=== PATIENT | male | born 1950 | race Caucasian/White ===

== ENCOUNTER 2022-05-01 15:05 | Emergency (ER) | payer MEDICARE, MEDICAID ==
[~2022-05-01 15:05] MED LIST: ACET325T38 PO; ALBU2.5V4 NEB; ALBU8.5H6 IH; ASPI-1238 PO; ATOR40TA PO; BUDE10.2 IH; CHOL10007 PO; CYAN-41 PO; DICL100G18 TP; ENOX40DI13 SQ; FLUT12AE4 IH; IBUP-1780 PO; METH-731 PO; METH500T PO; MUPI22OI2 TP; NICO-685 TD; OMEP20TA33 PO; OXC5T PO; SENN-20 PO; SERT100T PO; TIOT4MIS2 IH; TRZ50T PO
[2022-05-01 15:10] VITALS: BP 123/68
[2022-05-01] MEDS ORDERED: LACTATED RINGERS 1,000 ML IV STA (15:11)
--- NOTE | 2022-05-01 15:14 | ED General ---
General Chief Complaint: General Problems/Pain Stated Complaint: INTOXICATION History of Present Illness Date Seen by Provider: May 01, 2022 Time Seen by Provider: 15:05 Initial Comments Unknown aged gentleman brought in by EMS with what is believed to be acute intoxication. Patient was found by PD wandering around. When they approached him he threw 2 bottles of vodka and him that were empty. Patient appears to be extremely intoxicated slurring his words and unable to make much sense otherwise. Patient has no other HPI available Allergies and Home Medications Allergies Coded Allergies: No Allergy Information Available (Unverified , 05/01/22) Patient Home Medication List Home Medication List Reviewed: Yes Review of Systems Review of Systems Constitutional: see HPI Unable to obtain due to acute intoxication Past Rcntwsd-Esameb-Lsgjxd Hx Patient Social History Tobacco Use?: Yes Tobacco type used: Cigarettes Smoking Status: Current Everyday Smoker Substance use?: Unable to obtain Alcohol Use?: Yes Physical Exam Vital Signs Vital Signs - First Documented 05/01/22 15:10 Temp 35.4 Pulse 66 Resp 18 B/P (MAP) 123/68 (86) Pulse Ox 97 O2 Delivery Room Air Capillary Refill : Height, Weight, BMI Height: '" Weight: lbs. oz. kg; BMI Method: General Appearance: Other (Disheveled, unkept and reeks of alcohol) Respiratory: Lungs Clear, Normal Breath Sounds Cardiovascular: Regular Rate, Rhythm, No Edema Gastrointestinal: Non Tender, Soft Extremity: Normal Capillary Refill, Normal Range of Motion Neurologic/Psychiatric: Other (Intoxicated, slurred words with speech, no focal deficit) Skin: Normal Color Progress/Results/Core Measures Suspected Sepsis SIRS Temperature: Pulse: Respiratory Rate: Laboratory Tests 05/01/22 15:00: White Blood Count 9.0 Blood Pressure / Mean: Laboratory Tests 05/01/22 15:00: Creatinine 0.64, Platelet Count 256, Total Bilirubin 0.4 Results/Orders Lab Results Laboratory Tests Test 05/01/22 15:00 Range/Units White Blood Count 9.0 4.3-11.0 10^3/uL Red Blood Count 3.61 L 4.30-5.52 10^6/uL Hemoglobin 13.8 13.3-17.7 g/dL Hematocrit 39 L 40-54 % Mean Corpuscular Volume 109 H 80-99 fL Mean Corpuscular Hemoglobin 38 H 25-34 pg Mean Corpuscular Hemoglobin Concent 35 32-36 g/dL Red Cell Distribution Width 12.1 10.0-14.5 % Platelet Count 256 130-400 10^3/uL Mean Platelet Volume 8.9 L 9.0-12.2 fL Immature Granulocyte % (Auto) 1 % Neutrophils (%) (Auto) 53 42-75 % Lymphocytes (%) (Auto) 31 12-44 % Monocytes (%) (Auto) 13 H 0-12 % Eosinophils (%) (Auto) 2 0-10 % Basophils (%) (Auto) 0 0-10 % Neutrophils # (Auto) 4.7 1.8-7.8 10^3/uL Lymphocytes # (Auto) 2.8 1.0-4.0 10^3/uL Monocytes # (Auto) 1.2 H 0.0-1.0 10^3/uL Eosinophils # (Auto) 0.2 0.0-0.3 10^3/uL Basophils # (Auto) 0.0 0.0-0.1 10^3/uL Immature Granulocyte # (Auto) 0.1 0.0-0.1 10^3/uL Sodium Level 140 135-145 MMOL/L Potassium Level 3.5 L 3.6-5.0 MMOL/L Chloride Level 100 98-107 MMOL/L Carbon Dioxide Level 22 21-32 MMOL/L Anion Gap 18 H 5-14 MMOL/L Blood Urea Nitrogen 12 7-18 MG/DL Creatinine 0.64 0.60-1.30 MG/DL Estimat Glomerular Filtration Rate 73 BUN/Creatinine Ratio 19 Glucose Level 87 70-105 MG/DL Calcium Level 8.4 L 8.5-10.1 MG/DL Corrected Calcium 8.6 8.5-10.1 MG/DL Total Bilirubin 0.4 0.1-1.0 MG/DL Aspartate Amino Transf (AST/SGOT) 28 5-34 U/L Alanine Aminotransferase (ALT/SGPT) 14 0-55 U/L Alkaline Phosphatase 87 40-136 U/L Total Protein 6.4 6.4-8.2 GM/DL Albumin 3.8 3.2-4.5 GM/DL Serum Alcohol 363 *H <10 MG/DL My Orders Orders - MARY ANN HERNANDEZ L DO Alcohol (05/01/22 15:11) Cbc With Automated Diff (05/01/22 15:11) Comprehensive Metabolic Panel (05/01/22 15:11) Lactated Ringers (Lr 1000 Ml Iv Solution (05/01/22 15:11) Vital Signs/I&O 05/01/22 15:10 Temp 35.4 Pulse 66 Resp 18 B/P (MAP) 123/68 (86) Pulse Ox 97 O2 Delivery Room Air Capillary Refill : Point of Care Testing Finger Stick Blood Glucose: 84 Progress Note : Progress Note Patient is name is Polo Dong. As patient started to sober up he reports ports that "he is leaving. Patient tore his IV and ran out the door into the ambulance bay. I did manage to get him to come back and were he ripped out his IV. He was bandaged. Patient then reports he just got up and he was leaving. He is leaving AGAINST MEDICAL ADVICE. We did call PD and made him aware of him leaving. Patient refused to sign anything and was stumbling out the ER regardless of any attempt to convince him to stay while he continues to sober up. Nurses then will discharge him out to prevent him from falling and have him try to wait for PD in the lobby for potential ride home Departure Impression Primary Impression: Acute alcohol intoxication Qualified Codes: F10.920 - Alcohol use, unspecified with intoxication, uncomplicated Disposition: 07 AGAINST MEDICAL ADVICE Condition: Improved MARY ANN HERNANDEZ DO May 01, 2022 15:14
[2022-05-01 15:30] LABS: BASOPHILS % (AUTO) 0 % (0-10); EOSINOPHILS # (AUTO) 0.2 10^3/uL (0.0-0.3); EOSINOPHILS % (AUTO) 2 % (0-10); HEMATOCRIT 39 % (40-54); HEMOGLOBIN 13.8 g/dL (13.3-17.7); LYMPHOCYTES # (AUTO) 2.8 10^3/uL (1.0-4.0); LYMPHOCYTES % (AUTO) 31 % (12-44); MEAN CORPUSCULAR HEMOGLOBIN 38 pg (25-34); MEAN CORPUSCULAR HGB CONC 35 g/dL (32-36); MEAN CORPUSCULAR VOLUME 109 fL (80-99); MEAN PLATELET VOLUME 8.9 fL (9.0-12.2); MONOCYTES # (AUTO) 1.2 10^3/uL (0.0-1.0); MONOCYTES % (AUTO) 13 % (0-12); NEUTROPHILS # (AUTO) 4.7 10^3/uL (1.8-7.8); NEUTROPHILS % (AUTO) 53 % (42-75); PLATELET COUNT 256 10^3/uL (130-400)
[2022-05-01 15:36] LABS: POTASSIUM 3.5 MMOL/L (3.6-5.0)
[2022-05-01 15:37] LABS: ALBUMIN 3.8 GM/DL (3.2-4.5); BILIRUBIN,TOTAL 0.4 MG/DL (0.1-1.0); CALCIUM 8.4 MG/DL (8.5-10.1); CREATININE SERUM 0.64 MG/DL (0.60-1.30); TOTAL PROTEIN 6.4 GM/DL (6.4-8.2)
== END 2022-05-01 18:32 | disposition left against medical advice (07) ==
LOC: ER FS 15:07 → EDBD 15:07 → ER FS 18:32
DX: F10.229 Alcohol dependence with intoxication, unspecified (principal); F17.210 Nicotine dependence, cigarettes, uncomplicated; Y90.8 Blood alcohol level of 240 mg/100 ml or more
CPT/HCPCS: 36415; 80053; 85025; 99282; G0480; 80320

== ENCOUNTER 2022-12-16 16:01 | Emergency (ER) | payer MEDICARE, MEDICAID ==
[~2022-12-16] VITALS: Ht 182.9 cm; Wt 72.6 kg
--- NOTE | 2022-12-16 16:08 | ED Neurological Problem ---
General Stated Complaint: INTOXICATED Source: patient Exam Limitations: no limitations History of Present Illness Date Seen by Provider: Dec 16, 2022 Time Seen by Provider: 15:57 Initial Comments 72-year-old male presents to the emergency department today for possible strokelike symptoms. His ex- apparently called EMS because he had slurred speech thinking he may be having a stroke. He was found outside of a liquor store. In route he did have slurred speech. On arrival he states he does normally he is here. I told him that his ex- thought he might be having a stroke and he said "me and she is crazy, I am just really drunk." He denies any focal weakness. He states he has been drinking all day and drinks heavily most days. He does consent verbally to medical care today. He has no specific complaints. All other systems reviewed and negative except documented per HPI. Voice recognition software was used to help create this chart Allergies and Home Medications Allergies Coded Allergies: No Known Drug Allergies (Unverified , 05/02/22) Patient Home Medication List Home Medication List Reviewed: Yes Albuterol Sulfate (Ventolin Hfa) 1 Puff Puff, 2 PUFF IH QID PRN for SHORTNESS OF BREATH, (Reported) Entered as Reported by: PEARL MILIAN on 01/13/19 130 Albuterol Sulfate (Albuterol Sulfate) 2.5 Mg/3 Ml Vial.neb, 2.5 MG NEB QID PRN for SHORTNESS OF BREATH, (Reported) Entered as Reported by: PEARL MILIAN on 01/13/19 130 Aspirin (Aspirin EC) 81 Mg Tablet.dr, 81 MG PO DAILY Prescribed by: MAVERICK TOVAR on 01/19/192021 Atorvastatin Calcium (Lipitor) 40 Mg Tablet, 20 MG PO HS, (Reported) Entered as Reported by: PEARL MILIAN on 01/13/19 130 Cholecalciferol (Vitamin D3) (Vitamin D3) 1,000 Unit Capsule, 2,000 UNIT PO DAILY, (Reported) Entered as Reported by: PEARL MILIAN on 01/13/19 130 Cyanocobalamin (Vitamin B-12) (Vitamin B-12) 1,000 Mcg Tablet, 1,000 MCG PO DAILY, (Reported) Entered as Reported by: PEARL MILIAN on 01/13/19 130 Diclofenac Sodium (Voltaren) 100 Gm Gel..gram., 2 GM TP TID, (Reported) Entered as Reported by: PEARL MILIAN on 01/13/19 130 Fluticasone/Salmeterol (Advair Hfa 115-21 Mcg Inhaler) 12 Gm Hfa.aer.ad, 2 PUFF IH BID@08,20 Prescribed by: MAVERICK TOVAR on 01/19/192021 Ibuprofen (Ibuprofen) 800 Mg Tablet, 800 MG PO Q8H PRN for PAIN-MILD Prescribed by: MARITZA MOLINA on 02/21/19 102 Methocarbamol (Methocarbamol) 500 Mg Tablet, 500 MG PO BID Prescribed by: MAVERICK TOVAR on 01/19/192021 Mupirocin (Mupirocin) 22 Gm Oint...g., TP TID PRN for INFECTION, (Reported) Entered as Reported by: PEARL MILIAN on 01/13/19 130 Nicotine (Nicotine Patch) 1 Each Patch.td24, 21 MG TD DAILY, (Reported) Entered as Reported by: PEARL MILIAN on 01/13/19 130 Omeprazole Magnesium (Prilosec Otc) 20 Mg Tablet.dr, 20 MG PO DAILY PRN for HEARTBURN, (Reported) Entered as Reported by: PEARL MILIAN on 01/13/19 130 Oxycodone Hcl (Oxycodone IR) 5 Mg Tab, 5-10 MG PO Q4H PRN for PAIN-SEVERE Prescribed by: MAVERICK TOVAR on 01/19/192021 Sennosides/Docusate Sodium (Senna-Time S Tablet) 1 Each Tablet, 2 EA PO BID Prescribed by: MAVERICK TOVAR on 01/19/192021 Sertraline HCl (Zoloft) 100 Mg Tablet, 150 MG PO DAILY, (Reported) Entered as Reported by: PEARL MILIAN on 01/13/19 130 Tiotropium [place] (Spiriva Respimat 2.5MCG/ACTUATION) 4 Gm Mist.inhal, 2 PUFF IH DAILY, (Reported) Entered as Reported by: PEARL MILIAN on 01/13/19 130 Trazodone HCl (Trazodone HCl) 50 Mg Tablet, 50 MG PO HS PRN for SLEEP, (Reported) Entered as Reported by: PEARL MILIAN on 01/13/19 1303 Review of Systems Review of Systems Constitutional: see HPI Past Zbiptad-Ismchs-Fxoobi Hx Patient Social History Tobacco Use?: Yes Use of E-Cig and/or Vaping dev: No Substance use?: No Alcohol Use?: Yes Immunizations Up To Date Tetanus Booster (TDap): Unknown First/Initial COVID19 Vaccinat: JULY 2020 Second COVID19 Vaccination Nitin: AUGUST 2020 Seasonal Allergies Seasonal Allergies: No Past Medical History Surgery/Hospitalization HX: LEFT HIP, LEFT WRIST, PELVIS Surgeries: Yes (L arm fx. LEFT ACETABULAR FX) Orthopedic Respiratory: Yes COPD Currently Using CPAP: No Currently Using BIPAP: No Cardiac: Yes High Cholesterol Neurological: No Genitourinary: No Gastrointestinal: No Musculoskeletal: Yes Fractures Endocrine: No HEENT: No Cancer: No Psychosocial: Yes Depression Integumentary: No Blood Disorders: No Family Medical History No Pertinent Family Hx Physical Exam Vital Signs Vital Signs - First Documented 12/16/22 16:05 Temp 36.4 Pulse 74 Resp 18 B/P (MAP) 131/73 (92) Pulse Ox 95 O2 Delivery Room Air Capillary Refill : Height, Weight, BMI Height: 6'1.00" Weight: 185lbs. 5.0oz. 84.251203xv; 21.00 BMI Method:Stated General Appearance: WD/WN, no apparent distress HEENT: PERRL/EOMI, normal ENT inspection, pharynx normal Neck: non-tender Respiratory: chest non-tender, lungs clear, normal breath sounds, no respiratory distress, no accessory muscle use Cardiovascular: regular rate, rhythm, no murmur Gastrointestinal: normal bowel sounds, non tender, soft Extremities: normal range of motion, non-tender, no pedal edema, no calf tenderness, normal capillary refill Neurologic/Psychiatric: steel rod buster II-XII nml as tested, no motor/sensory deficits, alert, normal mood/affect, oriented x 3 Skin: other (Small abrasions left forearm. No bony tenderness.) Progress/Results/Core Measures Results/Orders My Orders Orders - KELTON ARREDONDO DO Ct Head Wo (12/16/22 16:05) Vital Signs/I&O 12/16/22 12/16/22 16:05 16:35 Temp 36.4 36.7 Pulse 74 70 Resp 18 16 B/P (MAP) 131/73 (92) 134/72 Pulse Ox 95 96 O2 Delivery Room Air Room Air Departure Communication (Admissions) Patient has no focal neurologic deficits. And apparently reviewed the CT imaging and they are negative for any acute findings. He becomes agitated and requests to leave. He is ambulatory, alert and oriented to person place and time. He has capacity make his own medical decisions. Advised he stay here until he stephany up but he declines. He is discharged in stable condition. He does have a ride on the way. Impression Primary Impression: Acute alcohol intoxication Qualified Codes: F10.920 - Alcohol use, unspecified with intoxication, uncomplicated Disposition: 01 HOME, SELF-CARE Condition: Stable Departure-Patient Inst. Referrals: NO,LOCAL PHYSICIAN (PCP/Family) Primary Care Physician Patient Instructions: ALCOHOL AND SUBSTANCE ABUSE KELTON ARREDONDO DO Dec 16, 2022 16:08
--- NOTE | 2022-12-16 16:29 | Diagnostic Imaging Report ---
CLINICAL INDICATION: Patient intoxicated with slurred speech. EXAM: Axial CT scan of the brain without IV contrast with coronal and sagittal reformatted images. Auto Exposure Controls were utilized during the CT exam to meet ALARA standards for radiation dose reduction. COMPARISON: None FINDINGS: There is no evidence of acute cerebral infarct, intracranial hemorrhage, or gross mass effect. The brain parenchymal volume appears appropriate for patient's age. There is normal clark-white matter distinction. There is no significant midline shift or herniation. There is no evidence of hydrocephalus. The basal cisterns are unremarkable. The skull, extracranial soft tissue, and orbits are unremarkable. The paranasal sinuses are unremarkable. Temporal bones show no significant abnormality. IMPRESSION: There is no evidence of acute intracranial process. There is no dense vessel sign. Dictated by: Dictated on workstation # [id number]
[2022-12-16 16:35] VITALS: BP 134/72
== END 2022-12-16 16:39 | disposition home or self-care (01) ==
LOC: EDUNIT# 16:01 → ER FS 16:05
DX: F10.129 Alcohol abuse with intoxication, unspecified (principal); S50.812A Abrasion of left forearm, initial encounter; Z87.828 Personal history of other (healed) physical injury and trauma; X58.XXXA Exposure to other specified factors, initial encounter
CPT/HCPCS: 70450

== ENCOUNTER 2022-12-23 16:39 | Emergency (ER) | payer MEDICARE, MEDICAID ==
[~2022-12-23] VITALS: Ht 182.9 cm; Wt 72.6 kg
[2022-12-23 16:43] VITALS: BP 118/68
--- NOTE | 2022-12-23 16:55 | ED Fall/Injury ---
General Chief Complaint: Laceration Stated Complaint: INTOXICATED, HEAD INJ Nursing Triage Note: Patient brought to the ED by EMS for chief complaint of intoxication and fall with head laceration. Patient arrived to the ED with C-collar in place. Source: patient, EMS, old records Exam Limitations: no limitations History of Present Illness Date Seen by Provider: Dec 23, 2022 Time Seen by Provider: 16:41 Initial Comments This 72-year-old gentleman is brought to the emergency room via EMS after being found lying in the road with an apparent head injury. He is technically alert and oriented but appears intoxicated and smells of alcohol. It is unknown if there was any loss of consciousness. He has a laceration lateral to the left brow. He denies any pain or other injury. He arrives in c-collar. He is noted to have a similar visit to the ER in the recent past related to alcohol intoxication. A fall was presumed but was unwitnessed. Allergies and Home Medications Allergies Coded Allergies: No Known Drug Allergies (Unverified , 05/02/22) Patient Home Medication List Home Medication List Reviewed: Yes Albuterol Sulfate (Ventolin Hfa) 1 Puff Puff, 2 PUFF IH QID PRN for SHORTNESS OF BREATH, (Reported) Entered as Reported by: PEARL MILIAN on 01/13/19 130 Albuterol Sulfate (Albuterol Sulfate) 2.5 Mg/3 Ml Vial.neb, 2.5 MG NEB QID PRN for SHORTNESS OF BREATH, (Reported) Entered as Reported by: PEARL MILIAN on 01/13/19 130 Aspirin (Aspirin EC) 81 Mg Tablet.dr, 81 MG PO DAILY Prescribed by: MAVERICK TOVAR on 01/19/192021 Atorvastatin Calcium (Lipitor) 40 Mg Tablet, 20 MG PO HS, (Reported) Entered as Reported by: PEARL MILIAN on 01/13/19 130 Cholecalciferol (Vitamin D3) (Vitamin D3) 1,000 Unit Capsule, 2,000 UNIT PO DAILY, (Reported) Entered as Reported by: PEARL MILIAN on 01/13/191302 Cyanocobalamin (Vitamin B-12) (Vitamin B-12) 1,000 Mcg Tablet, 1,000 MCG PO DAILY, (Reported) Entered as Reported by: PEARL MILIAN on 01/13/19 130 Diclofenac Sodium (Voltaren) 100 Gm Gel..gram., 2 GM TP TID, (Reported) Entered as Reported by: PEARL MILIAN on 01/13/19 130 Fluticasone/Salmeterol (Advair Hfa 115-21 Mcg Inhaler) 12 Gm Hfa.aer.ad, 2 PUFF IH BID@08,20 Prescribed by: MAVERICK TOVAR on 01/19/192021 Ibuprofen (Ibuprofen) 800 Mg Tablet, 800 MG PO Q8H PRN for PAIN-MILD Prescribed by: MARITZA MOLINA on 02/21/19 102 Methocarbamol (Methocarbamol) 500 Mg Tablet, 500 MG PO BID Prescribed by: MAVERICK TOVAR on 01/19/192021 Mupirocin (Mupirocin) 22 Gm Oint...g., TP TID PRN for INFECTION, (Reported) Entered as Reported by: PEARL MILIAN on 01/13/19 130 Nicotine (Nicotine Patch) 1 Each Patch.td24, 21 MG TD DAILY, (Reported) Entered as Reported by: PEARL MILIAN on 01/13/19 130 Omeprazole Magnesium (Prilosec Otc) 20 Mg Tablet.dr, 20 MG PO DAILY PRN for HEARTBURN, (Reported) Entered as Reported by: PEARL MILIAN on 01/13/19 130 Oxycodone Hcl (Oxycodone IR) 5 Mg Tab, 5-10 MG PO Q4H PRN for PAIN-SEVERE Prescribed by: MAVERICK TOVAR on 01/19/192021 Sennosides/Docusate Sodium (Senna-Time S Tablet) 1 Each Tablet, 2 EA PO BID Prescribed by: MAVERICK TOVAR on 01/19/192021 Sertraline HCl (Zoloft) 100 Mg Tablet, 150 MG PO DAILY, (Reported) Entered as Reported by: PEARL MILIAN on 01/13/19 130 Tiotropium [place] (Spiriva Respimat 2.5MCG/ACTUATION) 4 Gm Mist.inhal, 2 PUFF IH DAILY, (Reported) Entered as Reported by: PEARL MILIAN on 01/13/19 130 Trazodone HCl (Trazodone HCl) 50 Mg Tablet, 50 MG PO HS PRN for SLEEP, (Reported) Entered as Reported by: PEARL MILIAN on 01/13/19 1303 Review of Systems Review of Systems Constitutional: see HPI Eyes: No Symptoms Reported Ears, Nose, Mouth, Throat: no symptoms reported Respiratory: no symptoms reported Cardiovascular: no symptoms reported Gastrointestinal: no symptoms reported Genitourinary: no symptoms reported Musculoskeletal: no symptoms reported Skin: see HPI Psychiatric/Neurological: See HPI Past Eejnzfa-Nlrwtu-Dqllgr Hx Patient Social History Tobacco Use?: Yes Tobacco type used: Cigarettes Smoking Status: Current Everyday Smoker Substance use?: No Alcohol Use?: Yes Alcohol type: Hard Liquor Alcohol Frequency: Daily Pt feels they are or have been: No Immunizations Up To Date Tetanus Booster (TDap): Unknown First/Initial COVID19 Vaccinat: JULY 2020 Second COVID19 Vaccination Nitin: AUGUST 2020 Third COVID19 Vaccination Date: JULY 2020 Seasonal Allergies Seasonal Allergies: No Past Medical History Surgery/Hospitalization HX: LEFT HIP, LEFT WRIST, PELVIS Surgeries: Yes (L arm fx. LEFT ACETABULAR FX) Orthopedic Respiratory: Yes COPD Currently Using CPAP: No Currently Using BIPAP: No Cardiac: Yes High Cholesterol Neurological: No Genitourinary: No Gastrointestinal: No Musculoskeletal: Yes Fractures Endocrine: No HEENT: No Cancer: No Psychosocial: Yes Depression Integumentary: No Blood Disorders: No Family Medical History Parkinson's disease 19 FATHER 19 MOTHER G8 SISTER No Pertinent Family Hx Physical Exam Vital Signs Vital Signs - First Documented 12/23/22 16:43 Temp 36.3 Pulse 74 Resp 18 B/P (MAP) 118/68 (85) Pulse Ox 94 O2 Delivery Room Air Capillary Refill : Less Than 3 Seconds Height, Weight, BMI Height: 6'1.00" Weight: 185lbs. 5.0oz. 84.554343yz; 21.00 BMI Method:Stated General Appearance: WD/WN, no apparent distress, thin, other (Appears intoxicated) HEENT: PERRL/EOMI, pharynx normal, other (Shallow laceration lateral to left brow) Neck: normal inspection, other (C-collar in place) Cardiovascular: regular rate, rhythm, no edema, no murmur Respiratory: lungs clear, normal breath sounds, no respiratory distress Gastrointestinal: normal bowel sounds, non tender, soft Back: no CVA tenderness Extremities: non-tender, normal inspection, no pedal edema, other (No pain with palpation or rotation of the hips. Patient has been ambulatory.) Neurologic/Psychiatric: graphic illustrator II-XII nml as tested, no motor/sensory deficits, alert, oriented x 3, other (Answers questions of orientation appropriately but appears intoxicated) Skin: normal color, warm/dry, other (Laceration lateral to the left brow is shallow and clotted with no significant bleeding.) Johnny Coma Score Best Eye Response: (4) Open Spontaneously Best Verbal Response: (5) Oriented Best Motor Response: (6) Obeys Commands [place] Total: 15 Progress/Results/Core Measures Results/Orders Lab Results Laboratory Tests Test 12/23/22 17:08 12/23/22 18:22 Range/Units White Blood Count 6.9 4.3-11.0 10^3/uL Red Blood Count 3.12 L 4.30-5.52 10^6/uL Hemoglobin 12.0 L 13.3-17.7 g/dL Hematocrit 34 L 40-54 % Mean Corpuscular Volume 110 H 80-99 fL Mean Corpuscular Hemoglobin 38 H 25-34 pg Mean Corpuscular Hemoglobin Concent 35 32-36 g/dL Red Cell Distribution Width 11.9 10.0-14.5 % Platelet Count 209 130-400 10^3/uL Mean Platelet Volume 8.7 L 9.0-12.2 fL Neutrophils (%) (Auto) 49 42-75 % Lymphocytes (%) (Auto) 30 12-44 % Monocytes (%) (Auto) 18 H 0-12 % Eosinophils (%) (Auto) 3 0-10 % Basophils (%) (Auto) 0 0-10 % Neutrophils # (Auto) 3.4 1.8-7.8 X 10^3 Lymphocytes # (Auto) 2.1 1.0-4.0 X 10^3 Monocytes # (Auto) 1.3 H 0.0-1.0 X 10^3 Eosinophils # (Auto) 0.2 0.0-0.3 10^3/uL Basophils # (Auto) 0.0 0.0-0.1 10^3/uL Neutrophils % (Manual) 50 % Lymphocytes % (Manual) 34 % Monocytes % (Manual) 14 % Eosinophils % (Manual) 2 % Macrocytosis MODERATE Sodium Level 133 L 135-145 MMOL/L Potassium Level 3.9 3.6-5.0 MMOL/L Chloride Level 99 98-107 MMOL/L Carbon Dioxide Level 19 L 21-32 MMOL/L Anion Gap 15 H 5-14 MMOL/L Blood Urea Nitrogen 11 7-18 MG/DL Creatinine 0.73 0.60-1.30 MG/DL Estimat Glomerular Filtration Rate 97 BUN/Creatinine Ratio 15 Glucose Level 86 70-105 MG/DL Calcium Level 8.2 L 8.5-10.1 MG/DL Corrected Calcium 8.4 L 8.5-10.1 MG/DL Total Bilirubin 0.4 0.1-1.0 MG/DL Aspartate Amino Transf (AST/SGOT) 29 5-34 U/L Alanine Aminotransferase (ALT/SGPT) 16 0-55 U/L Alkaline Phosphatase 82 40-136 U/L Total Protein 6.1 L 6.4-8.2 GM/DL Albumin 3.8 3.2-4.5 GM/DL Serum Alcohol 309 *H <10 MG/DL Urine Color YELLOW Urine Clarity CLEAR Urine pH 5.5 5-9 Urine Specific [place] <=1.005 1.016-1.022 Urine Protein NEGATIVE NEGATIVE Urine Glucose (UA) NEGATIVE NEGATIVE Urine Ketones NEGATIVE NEGATIVE Urine Nitrite NEGATIVE NEGATIVE Urine Bilirubin NEGATIVE NEGATIVE Urine Urobilinogen NORMAL < = 1.0 MG/DL Urine Leukocyte Esterase NEGATIVE NEGATIVE Urine RBC (Auto) NEGATIVE NEGATIVE Urine RBC NONE /HPF Urine WBC NONE /HPF Urine Squamous Epithelial Cells 0-2 /HPF Urine Crystals NONE /LPF Urine Bacteria NEGATIVE /HPF Urine Casts NONE /LPF Urine Mucus NEGATIVE /LPF Urine Culture Indicated NO Urine Opiates Screen NEGATIVE NEGATIVE Urine Oxycodone Screen NEGATIVE NEGATIVE Urine Methadone Screen NEGATIVE NEGATIVE Urine Propoxyphene Screen NEGATIVE NEGATIVE Urine Barbiturates Screen NEGATIVE NEGATIVE Ur Tricyclic Antidepressants Screen NEGATIVE NEGATIVE Urine Phencyclidine Screen NEGATIVE NEGATIVE Urine Amphetamines Screen NEGATIVE NEGATIVE Urine Methamphetamines Screen NEGATIVE NEGATIVE Urine Benzodiazepines Screen NEGATIVE NEGATIVE Urine Cocaine Screen NEGATIVE NEGATIVE Urine Cannabinoids Screen NEGATIVE NEGATIVE My Orders Orders - TONYA BRUNO MD Ct Head/Cervical Spine Wo (12/23/22 16:48) Alcohol (12/23/22 16:48) Cbc With Automated Diff (12/23/22 16:48) Comprehensive Metabolic Panel (12/23/22 16:48) Drug Screen Stat (Urine) (12/23/22 16:48) Ua Culture If Indicated (12/23/22 16:48) Dipht,Pertuss(Acell),Tet Adult (Boostrix (12/23/22 17:00) Manual Differential (12/23/22 17:08) Lactated Ringers (Lr 1000 Ml Iv Solution (12/23/22 18:00) Medications Given in ED Current Medications Medications Dose Ordered Sig/Elif Route Start Time Stop Time Status Last Admin Dose Admin Diphtheria/ Tetanus/Acell Pertussis 0.5 ml ONCE ONCE IM 12/23/22 17:00 12/23/22 17:01 DC 12/23/22 17:33 0.5 ML Lactated Ringer's 1,000 ml @ 0 mls/hr Q0M ONCE IV 12/23/22 18:00 12/23/22 18:01 DC 12/23/22 17:57 1,000 MLS/HR Vital Signs/I&O 12/23/22 16:43 Temp 36.3 Pulse 74 Resp 18 B/P (MAP) 118/68 (85) Pulse Ox 94 O2 Delivery Room Air 12/24/22 00:00 Intake Total 1000 ml Balance 1000 ml Blood Pressure Mean: 85 Progress Progress Note #1: Time: 16:53 Progress Note Patient was interviewed and examined at 1641 when he arrived via EMS. Report was received by EMS. Patient was technically alert and oriented but appeared intoxicated. He denied any pain. He has a shallow laceration lateral to the left brow. This wound does not require repair. CT of head and cervical spine is pending. Labs have been ordered. There is no evidence of tetanus immunization in his chart, and a tetanus booster has been ordered. Remainder of his treatment plan and work-up will depend on his clinical progression and results of pending studies. Progress Note #2: Progress Note Labs were reviewed and interpreted by me. CBC demonstrated mild anemia with no other significant abnormalities. CMP demonstrated few minor abnormalities of no clinical significance. Blood alcohol level was 309. Urine drug screen was negative. Urinalysis was normal. CT of the head and cervical spine was obtained and radiologist's report reviewed. C-collar was cleared after review of report. Patient was allowed time to sober. He received a liter of IV fluid. He was able to ambulate independently and safely after being allowed to sober. His cognition also improved. He received a booster of tetanus immunization. He had no additional complaints of pain or other medical complaints after allowing time to sober. Length of stay was prolonged slightly due to EMR unplanned downtime. Diagnostic Imaging Diagonstic Imaging: CT Plain Films/CT/US/NM/MRI: c-spine, head Comments NAME: [facility] REC#: [id number] PT STATUS: REG ER : 1950 PHYSICIAN: TONYA BRUNO MD ADMIT DATE: 12/23/22/ER FS Draft Date of Exam:12/23/22 CT HEAD/CERVICAL SPINE WO EXAMINATION: CT head and CT cervical spine without contrast. TECHNIQUE: Multiple contiguous axial images were obtained through the brain and cervical spine without the use of intravenous contrast. Sagittal and coronal reformations through the cervical spine were then performed. All CT scans use one or more of the following dose optimizing techniques: Automated exposure control, MA and/or KvP adjustment based on patient size and exam type or iterative reconstruction. HISTORY: Head and neck pain after fall. COMPARISON: 12/16/2022. FINDINGS: HEAD: Mild diffuse cerebral volume loss with proportional enlargement of the ventricles and sulci. No abnormal attenuation of brain parenchyma is present. No acute intracranial hemorrhage or abnormal extra-axial fluid collections are present. No hyperdense vessel. The calvarium is intact. The mastoid air cells are clear. Mucosal thickening of the paranasal sinuses. The orbits are normal. C-SPINE: Vertebral body height and alignment are preserved. No acute fracture, dislocation, or destructive osseous process. Multilevel facet hypertrophy without perched facets. There is multilevel cervical spondylosis. The paraspinous soft tissues are normal. The visualized thyroid gland is normal. There is scarring within the lung apices. IMPRESSION: 1. No acute intracranial abnormality. Mild volume loss. 2. Degenerative changes of the cervical spine without acute osseous abnormality. Dictated on workstation # [id number] Dict: 12/23/221705 Trans: 12/23/221708 [id number] Interpreted by: ARON MARMOLEJO DO Departure Impression Primary Impression: Fall on same level Qualified Codes: W18.30XA - Fall on same level, unspecified, initial encounter Additional Impressions: Minor head injury Qualified Codes: S09.90XA - Unspecified injury of head, initial encounter Facial laceration Qualified Codes: S01.81XA - Laceration without foreign body of other part of head, initial encounter Alcohol intoxication Qualified Codes: F10.929 - Alcohol use, unspecified with intoxication, unspecified Disposition: 01 HOME, SELF-CARE Condition: Improved Departure-Patient Inst. Decision time for Depature: 21:17 Referrals: NO,LOCAL PHYSICIAN (PCP/Family) Primary Care Physician Patient Instructions: Alcohol Use Disorder ED, Minor Head Injury (DC) Add. Discharge Instructions: Return to the emergency room if you have worsening symptoms. Avoid drinking alcohol to excess to prevent further falls. Monitor your wounds for signs of infection such as increasing redness, increa sing swelling, puslike drainage, or fever. Return to the ER if you notice the symptoms. Follow-up with your primary care provider as soon as possible. All discharge instructions reviewed with patient and/or family. Voiced understanding. TONYA BRUNO MD Dec 23, 2022 16:54
[2022-12-23] MEDS ORDERED: TETANUS,DIPTH,PERTUSS P/F (BOOSTRIX) 0.5 ML VIAL IM ONE (17:00)
--- NOTE | 2022-12-23 17:09 | Diagnostic Imaging Report ---
EXAMINATION: CT head and CT cervical spine without contrast. TECHNIQUE: Multiple contiguous axial images were obtained through the brain and cervical spine without the use of intravenous contrast. Sagittal and coronal reformations through the cervical spine were then performed. All CT scans use one or more of the following dose optimizing techniques: Automated exposure control, MA and/or KvP adjustment based on patient size and exam type or iterative reconstruction. HISTORY: Head and neck pain after fall. COMPARISON: 12/16/2022. FINDINGS: HEAD: Mild diffuse cerebral volume loss with proportional enlargement of the ventricles and sulci. No abnormal attenuation of brain parenchyma is present. No acute intracranial hemorrhage or abnormal extra-axial fluid collections are present. No hyperdense vessel. The calvarium is intact. The mastoid air cells are clear. Mucosal thickening of the paranasal sinuses. The orbits are normal. C-SPINE: Vertebral body height and alignment are preserved. No acute fracture, dislocation, or destructive osseous process. Multilevel facet hypertrophy without perched facets. There is multilevel cervical spondylosis. The paraspinous soft tissues are normal. The visualized thyroid gland is normal. There is scarring within the lung apices. IMPRESSION: 1. No acute intracranial abnormality. Mild volume loss. 2. Degenerative changes of the cervical spine without acute osseous abnormality. Dictated by: Dictated on workstation # [id number]
[2022-12-23 17:24] LABS: MEAN CORPUSCULAR HEMOGLOBIN 38 pg (25-34); WHITE BLOOD COUNT 6.9 10^3/uL (4.3-11.0)
[2022-12-23 17:25] LABS: BASOPHILS % (AUTO) 0 % (0-10); EOSINOPHILS # (AUTO) 0.2 10^3/uL (0.0-0.3); EOSINOPHILS % (AUTO) 3 % (0-10); HEMATOCRIT 34 % (40-54); LYMPHOCYTES # (AUTO) 2.1 X 10^3 (1.0-4.0); LYMPHOCYTES % (AUTO) 30 % (12-44); MEAN CORPUSCULAR HGB CONC 35 g/dL (32-36); MEAN CORPUSCULAR VOLUME 110 fL (80-99); MEAN PLATELET VOLUME 8.7 fL (9.0-12.2); MONOCYTES # (AUTO) 1.3 X 10^3 (0.0-1.0); MONOCYTES % (AUTO) 18 % (0-12); NEUTROPHILS # (AUTO) 3.4 X 10^3 (1.8-7.8); NEUTROPHILS % (AUTO) 49 % (42-75); PLATELET COUNT 209 10^3/uL (130-400)
[2022-12-23 17:39] LABS: POTASSIUM 3.9 MMOL/L (3.6-5.0)
[2022-12-23 17:40] LABS: ALBUMIN 3.8 GM/DL (3.2-4.5); BILIRUBIN,TOTAL 0.4 MG/DL (0.1-1.0); CALCIUM 8.2 MG/DL (8.5-10.1); CREATININE SERUM 0.73 MG/DL (0.60-1.30); TOTAL PROTEIN 6.1 GM/DL (6.4-8.2)
[2022-12-23 17:48] LABS: EOSINOPHILS % (MANUAL) 2 %; LYMPHOCYTES % (MANUAL) 34 %; MONOCYTES % (MANUAL) 14 %; NEUTROPHILS % (MANUAL) 50 %
[2022-12-23] MEDS ORDERED: LACTATED RINGERS 1,000 ML IV ONE (18:00)
[2022-12-23 19:32] LABS: AMPHETAMINE SCREEN, URINE NEGATIVE (NEGATIVE); BARBITURATE SCREEN URINE NEGATIVE (NEGATIVE); BENZODIAZEPINES SCREEN URINE NEGATIVE (NEGATIVE); CANNABINOID SCREEN, URINE NEGATIVE (NEGATIVE); COCAINE SCREEN URINE NEGATIVE (NEGATIVE); METHADONE STAT NEGATIVE (NEGATIVE); OPIATE SCREEN URINE NEGATIVE (NEGATIVE); OXYCODONE STAT NEGATIVE (NEGATIVE); PROPOXYPHENE STAT NEGATIVE (NEGATIVE); TRICYCLIC ANTIDEPRESSANTS SCRE NEGATIVE (NEGATIVE)
[2022-12-23 19:36] LABS: BACTERIA,URINE NEGATIVE /HPF; BILIRUBIN,URINE NEGATIVE (NEGATIVE); CLARITY,URINE CLEAR; COLOR,URINE YELLOW; GLUCOSE, URINE (UA) NEGATIVE (NEGATIVE); KETONES,URINE NEGATIVE (NEGATIVE); LEUKOCYTE ESTERASE ,URINE NEGATIVE (NEGATIVE); NITRITE,URINE NEGATIVE (NEGATIVE); PH,URINE 5.5 (5-9); PROTEIN,URINE NEGATIVE (NEGATIVE); SQUAMOUS EPITHELIAL CELL,UR 0-2 /HPF
== END 2022-12-23 21:30 | disposition home or self-care (01) ==
LOC: EDUNIT# 16:39 → ER FS 16:40
DX: S09.90XA Unspecified injury of head, initial encounter (principal); S01.81XA Laceration without foreign body of other part of head, initial encounter; F10.129 Alcohol abuse with intoxication, unspecified; D64.9 Anemia, unspecified; F17.210 Nicotine dependence, cigarettes, uncomplicated; Z23 Encounter for immunization; Y90.8 Blood alcohol level of 240 mg/100 ml or more; W18.30XA Fall on same level, unspecified, initial encounter
CPT/HCPCS: 36415; 70450; 72125; 80053; 80306; 81000; 85007; 85027; 99284; G0480; 80320; 90715